=== PATIENT | male | born 1995 | race Caucasian/White ===

== ENCOUNTER 2017-08-31 13:20 | Emergency (ER) | payer OTHER ==
[~2017-08-31] VITALS: Ht 172.7 cm; Wt 72.6 kg
[~2017-08-31 13:20] MED LIST: AMITRIPTYLINE H25 M2 PO; CO Q-10100 MG PO; HYDROCODONE-AP1 EAC6 PO; NOHOMEMEDICATIONS; PHENADOZ25 MG RC; PHENERGAN 25 MG25 M1 PO; PROMS25 WY RECTAL; TRANSDERM-SCO1 PATC1 TD; ZOFRAN ODT4 MG PO
[2017-08-31 14:07] LABS: HEMATOCRIT 47.6 % (42.0-52.0); HEMOGLOBIN 16.4 gm/dL (14.0-18.0); MCH 32.7 pg (26.0-34.0); MCHC 34.4 g/dL (28.0-37.0); MCV 95.2 fL (80.0-100.0); MPV 7.9 fl. (7.2-11.1); NUCLEATED RBCS 0 /100WBC; PLATELET COUNT* 273 thou/uL (150-400); RDW-CV 12.5 % (10.5-14.5); WBC 20.9 thou/uL (4.0-11.0)
[2017-08-31 14:29] LABS: CALCIUM 9.7 mg/dL (8.5-10.1); CREATININE 0.8 mg/dL (0.6-1.3); POTASSIUM 3.7 mmol/L (3.5-5.1)
[2017-08-31 14:33] LABS: ALBUMIN 4.6 g/dL (3.4-5.0); TOTAL BILIRUBIN 0.7 mg/dL (<0.1-1.0); TOTAL PROTEIN 7.9 g/dL (6.4-8.2)
[2017-08-31 14:40] LABS: ABSOLUTE LYMPHOCYTES 2.9 thou/uL (0.8-5.3); ABSOLUTE MONOCYTES 0.4 thou/uL (0.0-1.2); ABSOLUTE NEUTROPHILS 17.6 thou/uL (1.6-8.1); CLUMPED PLTS OCCASIONAL; PLATELET ESTIMATE ADEQUATE
[2017-08-31 15:05] VITALS: BP 142/76
== END 2017-08-31 15:05 | disposition home or self-care (01) ==
LOC: M.ERS 13:20
PROVIDERS: Physician Assistant
DX: G43.A0 Cyclical vomiting, in migraine, not intractable (principal); F31.9 Bipolar disorder, unspecified; F17.210 Nicotine dependence, cigarettes, uncomplicated